=== PATIENT | female | born 1990 | race Caucasian/White ===

== ENCOUNTER 2018-08-14 10:36 | Inpatient (IN) ==
[2018-08-14 11:37] LABS: Basophils % 0.3 %; Eosinophils # 0.2 K/mcL (0.0-0.6); Eosinophils % 1.6 %; Hematocrit 36.4 % (35.3-44.9); Hemoglobin 12.6 g/dL (11.5-15.4); Immature Granulocytes % 0.7 % (0-4); Lymphocytes # 1.5 K/mcL (0.6-4.6); Lymphocytes % 14.4 %; Mean Corpuscular HGB Conc 34.6 g/dL (31.6-35.5); Mean Corpuscular Hemoglobin 31.9 pg (28.0-33.3); Mean Corpuscular Volume 92.2 fL (83.0-100.0); Mean Platelet Volume 10.1 fL (9.4-12.4); Monocytes # 0.8 K/mcL (0.0-1.3); Monocytes % 7.2 %; Neutrophils # 8.1 K/mcL (1.6-8.9); Platelet Count 209 K/mcL (140-400); Red Blood Count 3.95 M/mcL (3.82-4.97); Red Cell Distribution Width 13.7 % (11.5-14.5); Segmented Neutrophils % 75.8 %
[2018-08-14 11:39] LABS: Alanine Aminotransferase 14 Units/L (7-52); Amphetamine Screen,Urine Negative ng/mL (Cutoff=1000); Aspartate Amino Transferase 13 Units/L (13-39); BUN/Creatinine Ratio 10 (6-26); Barbiturate Screen,Urine Negative ng/mL (Cutoff=200); Benzodiazepines Screen,Urine Negative ng/mL (Cutoff=200); Blood Urea Nitrogen 5 mg/dL (6-20); Cannabinoid Screen,Urine Negative ng/mL (Cutoff = 50); Cocaine Screen,Urine Negative ng/mL (Cutoff= 300); Lactate Dehydrogenase 143 Units/L (140-271); Opiate Screen,Urine Negative ng/mL (Cutoff=300); Phencyclidine Screen,Urine Negative ng/mL (Cutoff=25); Protein/Creatinine Ratio,Urine 0.94 mg/mg (0.00-0.20); eGFR For Non-African Americans > 60 (> 60)
[2018-08-14 11:40] LABS: Bilirubin,Urine Negative (Negative); Blood,Urine Negative (Negative); Clarity,Urine Clear (Clear); Color,Urine Yellow (Yellow); Glucose,Urine (UA) Normal (Normal); Ketones,Urine Negative (Negative); Leukocyte Esterase,Urine Small (Negative); Nitrite,Urine Negative (Negative); PH,Urine 7.5 pH Units (5.0-8.0); Protein,Urine 30 mg/dL (Neg-Trace); Specific Gravity,Urine 1.007 (1.010-1.025); Urobilinogen,Urine Normal (Normal)
[2018-08-14 11:45] LABS: Bacteria,Urine None Seen per hpf (None-Few); Hyaline Casts,Urine None Seen per lpf (None-Few); RBC,Urine 0-3 per hpf (0-3); Squamous Epithelial Cell,Urine Many per lpf (None-Few); WBC,Urine 0-3 per hpf (0-3)
[2018-08-14] MEDS ORDERED: *HR* Nalbuphine 10 MG/ML AMPUL IVP PRN (13:17)
[2018-08-14] MEDS ORDERED: Ondansetron 4 MG/2 ML VIAL IVP PRN (13:17)
[2018-08-14] MEDS ORDERED: Naloxone 0.4 MG/ML INJ IVP PRN (13:17)
[2018-08-14] MEDS ORDERED: Famotidine 20 MG/2 ML VIAL IVP PRN (13:17)
[2018-08-14] MEDS ORDERED: Metoclopramide 10 MG/2 ML VIAL IVP PRN (13:17)
[2018-08-14] MEDS ORDERED: miSOPROStol 25 MCG TABLET PO PRN (13:19)
[2018-08-14] MEDS ORDERED: Ringers Solution, Lactated 1,000 ML IVC SCH (13:30)
[2018-08-14] MEDS ORDERED: *HR* Labetalol 20 MG/4 ML SYRINGE IVP ONE ×2 (14:28→14:29)
--- NOTE | 2018-08-14 14:44 | OB/GYN History & Physical ---
Date of Encounter: 08/14/18 Time of Encounter: 14:35 Assessment and Plan (1) 37 weeks gestation of Current visit: Yes Status: Acute (2) Pre-eclampsia, severe, third trimester Current visit: Yes Status: Acute PNC ratio 0.94, no blood found on UA. Multiple severe range pressures noted in labor and delivery. Admit to labor and delivery Nubain and epidural as desired Transfer of care to DrMikhail and only due to preeclampsia with severe features 20 mg labetalol IV Start magnesium 4 g bolus then 2 g an hour Anticipate (3) Elevated blood pressure affecting in third trimester, antepartum Current visit: No Status: Acute History of Present Illness Chief complaint: PIH HPI: Ms. Abebe is a 27 year old female 37+3 weeks gestation presents to labor and delivery for evaluation of preeclampsia. He should not with elevated protein on 24-hour urine. Denies headaches, visual changes. History of chronic hypertension. 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 care with Dr. Lucas. Labs: A+, rubella and varicella immune, GBS negative, all other serologies negative Past Med Surg Social Fam HX - Past Medical History Source: patient Medical history: other (ITP as child ) Psychiatric history: no psych history - Past Surgical History Surgical History: non-contributory Additional surgical history: tonsils and adenoids; eustachian tubes; cyst removal on foot - Social History Smoking Status: Current every day smoker Packs per day: half to 1 pack Smokeless Tobacco Status: No Alcohol use: none Drug use: none - Family History Mother Name: Florinda Merchant Age: 46 Family Member Ethnicity: Non- Living Status: Still Living Hx Family Cardiac Disorders: Yes (hyperlipidemia) Hx Family Respiratory Disorders: Yes (asthma COPD) Hx Family Cancer: No Hx Family GI Disorders: Yes (IBS) Hx Family Genitourinary Disorders: No Hx Family Endocrine Disorder: No Hx Family Musculoskeletal Disorders: No Hx Family Neuromuscular Disorders: No Hx Family Neurologic Disorders: No Hx Family HEENT Disorders: No Hx Family Autoimmune Disorders: No Hx Family Reproductive Disorders: No Hx Family Psychosocial Disorders: No Hx Family Medical Disorders: No Obstetrical History - Pregnancies : 1 Para: 0 Term: 0 : 0 Ab's: 0 Livin Medications and Allergies Pnv with Ca,No.72/Iron,Carb/FA [ Plus Iron Tablet] 1 each PO DAILY 02/09/18 [History] Allergy/AdvReac Type Severity Reaction Status Date / Time Amoxicillin Allergy Mild Rash Verified 08/10/18 06:58 Exam - Constitutional Constitutional: well developed, well nourished, no acute distress - Neck Neck exam: full ROM - Lungs Respiratory exam: CTAB - Cardiovascular Cardiovascular exam: RRR - Abdomen Abdomen: Present: gravid, non tender - Extremities Extremities exam: normal capillary refill, normal inspection Deep Tendon Reflex Grade: 2+ Normal - Cervix Dilation: 3 (per RN) Results Result Diagrams: 08/14/18 11:05 08/14/18 11:05 Abnormal lab results BUN 5 mg/dL (6-20) L 08/14/18 11:05 Creatinine 0.50 mg/dL (0.60-1.20) L 08/14/18 11:05 Ur Specific [place] 1.007 (1.010-1.025) L 08/14/18 11:20 Urine Protein 30 mg/dL (Neg-Trace) H 08/14/18 11:20 Ur Leukocyte Esterase Small (Negative) H 08/14/18 11:20 Ur Squamous Epith Cells Many per lpf (None-Few) H 08/14/18 11:20 Ur Culture Indicated? NO. (NO) A 08/14/18 11:20 Protein/Creatinin Ratio 0.94 mg/mg (0.00-0.20) H 08/14/18 11:05 Urine Total Protein 43 mg/dL (1-14) H 08/14/18 11:05 All other labs normal. - VTE Reasons for not Prescribing Prophylaxis: Treatment not Indicated - Low risk for VTE
[2018-08-14] MEDS ORDERED: Calcium Gluconate 1,000 MG/10 ML VIAL IVPB ONE (15:06)
[2018-08-14] MEDS: Magnesium Sulfate 20 gm/500mL 20 GM/500 ML IV.SOLN IVC SCH (15:07)
[2018-08-14] MEDS ORDERED: Oxytocin 20 units/ LR 1000 mL 20 UNIT/1,000 ML BAG IVC SCH (17:00)
--- NOTE | 2018-08-14 17:09 | OB Labor Progress Note ---
Date of Encounter: 08/14/18 Time of Encounter: 17:06 Labor Progress Note - Subjective Subjective: she's doing well s/p AROM, no reported signs or symptoms of toxemia(BOYLE, RUQ pain, epigastric pain, blurry vision, nausea or vomiting etc) - Vital Signs Vital Signs: 130's-170's/60-90's - Cervix Cervix: 5/90/-1 - Heart Tones Heart Tones: 135/mod eliseo/+accels no decels - [place]: irreg - Interventions Interventions: ok to start pitocin, ok for epidural if she desires, anticipate , currently on Mg for seizure ppx
[2018-08-14] MEDS ORDERED: Oxytocin 20 units/ LR 1000 mL 20 UNIT/1,000 ML BAG IVC ONE (17:19)
--- NOTE | 2018-08-14 19:35 | Anesthesia Evaluation PreOp ---
Date of Encounter: 08/14/18 Time of Encounter: 19:33 - Past History Planned Operation: gaudencio Cardiac History: HTN (gestational) Pulmonary History: Smoker (1 ppd), Pack/yr (8) [employer] History: Denies Any Significant HX Other Medical History: GERD, Other ([place] BMI 44) Anesthesia History: No Prior Anesthetic Complications, Past Anesthesia (tonsil BMT, foot) : Yes Test: Positive Alcohol Use: none Drug use: none Medications and Allergies Pnv with Ca,No.72/Iron,Carb/FA [ Plus Iron Tablet] 1 each PO DAILY 02/09/18 [History] Allergy/AdvReac Type Severity Reaction Status Date / Time Amoxicillin Allergy Mild Rash Verified 08/10/18 06:58 - Meds/Allergy Pre-op Review Medications Reviewed: Yes Allergies Reviewed: Yes Beta Blockers on Current Med List: No Anesthesia Results - Labs 08/14/18 11:05 08/14/18 11:05 Anesthesia Exam Vital Signs/O2 Sat, Most Current Pulse Resp BP 82 16 142/68 08/14/18 18:10 08/14/18 18:10 08/14/18 18:10 Height: 5'4" Weight: 118kg NPO (# of Hours): 2 Pain Scale: 4 Pain Scale Used: Numeric (1 - 10) - HEENT Pupil (Motor): Pupils equal Mallampati: III Teeth: Normal Oral Opening: Greater than 3 - [employer] LOC: Oriented [employer] Motor: Normal RUE, Normal LUE, Normal RLE, Normal LLE, Normal Face [employer] Sensory: Normal: RUE, LUE, RLE, LLE, Face - Cardiac Rhythm: Regular Murmur: None - Pulmonary Breath Sounds: bilateral Clear Respiratory Effort: Symmetrical Anesthesia Assess/Plan ASA Score: 3 (htn, [place],) Level of consciousness: Cooperative Anesthetic Plan: MAC, Epidural (risks discussed, questions answered, consented) Autologous Blood: No Monitoring Plan: Standard Monitors Recovery Plan: Other
[2018-08-14] MEDS ORDERED: *HR* Ropivacaine/PF 0.2% 20 ML VIAL EP ONE (19:36)
[2018-08-14] MEDS ORDERED: *HR* FentaNYL (PF) 100 MCG/2 ML VIAL EP ONE (19:36)
[2018-08-14] MEDS ORDERED: Epidural Premix (fent/bupiv) 110 ML EP SCH (19:45)
[2018-08-14] MEDS ORDERED: *HR* FentaNYL (PF) 100 MCG/2 ML VIAL ONE (21:52)
[2018-08-14] MEDS ORDERED: Lidocaine -MPF 2% 5 ML VIAL ONE (21:53)
[2018-08-14] MEDS ORDERED: *HR* Ropivacaine/PF 0.2% 20 ML VIAL ONE (21:53)
--- NOTE | 2018-08-14 22:00 | OB Labor Progress Note ---
Date of Encounter: 08/15/18 Time of Encounter: 22:00 Labor Progress Note - Subjective Subjective: patient is doing well, no signs and symptoms of toxemia - Vital Signs Vital Signs: 130-140's/50-60's - Cervix Cervix: 5cm/90%/-2 - Heart Tones Heart Tones: 130/mod eliseo/+accels, non rec eliseo decels - [place]: Q1-2 - Interventions Interventions: cont Mg for seizure ppx, good urine output, cont pitocin, now @ 10, anticipate
[2018-08-14] MEDS ORDERED: EPHEDrine 50 MG/ML VIAL ONE (22:27)
--- NOTE | 2018-08-14 22:27 | Anesthesia Procedures ---
Addendum entered and electronically signed by Sivan Chauhan CRNA 08/15/18 08:53: - Delivery Date: 08/15/18 @0705 Original Note: Date of Encounter: 08/14/18 Time of Encounter: 22:25 Procedures: Anesthesia - Epidural/Spinal Patient ID/Chart reviewed: Yes Patient examined: Yes OB Eval: Gestational age: 38 OB Eval: : 1 OB Eval: Hx Para: 0 OB Eval: Dilated at (cm): 5 OB Eval: Contractions: Non-stressed pattern Consent Obtained: Yes Supplemental Oxygen: None/Room Air Site Prep: Aseptic Technique, Sterile prep and drape, 0.5% Chlorhexidine/Alcohol Patient position: upright Local Anesthetic: Lidocaine 1% Amount of Local Anesthetic used: 3 Touhy Needle Gauge: 18 Touhy Needle Depth (cm): 8 Catheter Depth at Skin (cm): 18 Test Dose (1.5% Lido + Epi): Volume given (mls): 3 Test Dose Result: Negative Loading Dose: Fentanyl (mcg): 100 Loading Dose: Other: rop 0.2% 10cc Loading Dose Administered: Thru Touhy Needle Infusion Med: 0.125% Bupivacaine w/ 2 mcg/ml Fentanyl Infusion Rate (mls/hr): 15 (pcea) Catheter Secured in Place: Tegaderm Interspace Used: L2-L3 Loss of Resistance (YANY): Yes Blood: No CSF: No Paresthesia: No Procedure: aseptic, jesus well, VSS Vitals + FHT's: 110/78 88 fht 132
--- NOTE | 2018-08-14 23:49 | OB Labor Progress Note ---
Date of Encounter: 08/15/18 Time of Encounter: 23:36 Labor Progress Note - Subjective Subjective: patient with epidural hypotension resulting in late decels - Vital Signs Vital Signs: 90-160's/50-70's - Cervix Cervix: 5/90%/-2 - Heart Tones Heart Tones: 135/mod eliseo/no accels, +late decels - [place]: Q1-2 - Interventions Interventions: Ephedrine x 2 doses given with resolution of the hypotension, cont monitoring strip, anticipate
[2018-08-15] MEDS: Magnesium Sulfate 20 gm/500mL 20 GM/500 ML IV.SOLN IVC SCH ×3 (00:14→23:16)
--- NOTE | 2018-08-15 01:02 | OB Labor Progress Note ---
Date of Encounter: 08/15/18 Time of Encounter: 01:02 Labor Progress Note - Subjective Subjective: patient is doing well, no signs or symptoms of toxemia - Vital Signs Vital Signs: 130-180's/60-100's - Cervix Cervix: 6-7cm/90%/-2 - Heart Tones Heart Tones: 120/mod eilseo/+accels, non rec eliseo decels - [place]: Q3-4 - Interventions Interventions: allow labor to progress, continue Mg for seizure ppx, urine output adequate
[2018-08-15] MEDS ORDERED: *HR* FentaNYL (PF) 100 MCG/2 ML VIAL ONE (02:34)
--- NOTE | 2018-08-15 02:42 | Anesthesia Progress Note ---
Date of Encounter: 08/15/18 Time of Encounter: 02:40 Anesthesia Note - Note Note: 08/15/18 02:40 re dosed epidural for breakthrough pain, Ropivicaine 0.2% 5 ml fentanyl 100 mcg
--- NOTE | 2018-08-15 06:24 | OB Labor Progress Note ---
Date of Encounter: 08/15/18 Time of Encounter: 06:24 Labor Progress Note - Subjective Subjective: patient is feeling more of her ctxs, - Vital Signs Vital Signs: 140-180's/70-80's - Cervix Cervix: 9cm - Heart Tones Heart Tones: 115/mod eilseo/+accels, no decels - [place]: Q1-3 - Interventions Interventions: allow labor to progress, anticipate - Plan Physician notified: No Plan: Physician not notified of severe range pressures @ 5:27
--- NOTE | 2018-08-15 08:33 | OB/GYN Procedure Note ---
Delivery - Delivery Date: 08/15/18 Provider: Nilda Fried Intrapartum events: none Delivery induction: AROM Delivery augmentation: pitocin Delivery monitor: external FHT, external uterine Anesthesia: epidural Quantitated Blood Loss: 200 - Repair Episiotomy: none Laceration Description: Perineal - 1st Degree - Complications Delivery complications: none - Disposition Mom disposition: stable in LDR [place] disposition: stable in LDR - Comments Comments: Alena is a 27 y/o now who delivered a viable male @ 0705hrs. Infant delivered CHRISTA, no nuchal cord, APGARs 8/8, weight 2770g. Cord clamped and cut with hand over to Mom. Placenta delivered @ 0715hrs. EBL 200ml. 1st degree laceration repaired with 3-0 vicryl. Mother and infant stable.
[2018-08-15] MEDS ORDERED: Ibuprofen 600 MG TABLET PO PRN (09:54)
[2018-08-15] MEDS ORDERED: Measles/Mumps/Rubella Vacc 0.5 ML VIAL SQ PRN (09:54)
[2018-08-15] MEDS ORDERED: [UNRECOGNIZED DRUG - REMARK] PO SCH (09:54)
[2018-08-15] MEDS ORDERED: Oxytocin 20 units/ LR 1000 mL 20 UNIT/1,000 ML BAG IVC SCH (09:54)
[2018-08-15] MEDS ORDERED: Calcium Gluconate 1,000 MG/10 ML VIAL IVPB ONE (11:11)
[2018-08-16 04:33] LABS: Basophils % 0.2 %; Eosinophils # 0.1 K/mcL (0.0-0.6); Eosinophils % 0.8 %; Hematocrit 27.2 % (35.3-44.9); Immature Granulocytes % 0.4 % (0-4); Lymphocytes # 2.1 K/mcL (0.6-4.6); Lymphocytes % 16.9 %; Mean Corpuscular HGB Conc 33.5 g/dL (31.6-35.5); Mean Corpuscular Hemoglobin 31.3 pg (28.0-33.3); Mean Corpuscular Volume 93.5 fL (83.0-100.0); Mean Platelet Volume 10.1 fL (9.4-12.4); Monocytes # 0.8 K/mcL (0.0-1.3); Monocytes % 6.2 %; Neutrophils # 9.3 K/mcL (1.6-8.9); Platelet Count 182 K/mcL (140-400); Red Blood Count 2.91 M/mcL (3.82-4.97); Red Cell Distribution Width 14.3 % (11.5-14.5); Segmented Neutrophils % 75.5 %
[2018-08-16 04:35] LABS: Hemoglobin 9.1 g/dL (11.5-15.4)
[2018-08-16] MEDS: Prenatal Vit/FA 1 EACH TABLET PO SCH (08:01)
--- NOTE | 2018-08-16 13:48 | OB/GYN Progress Note ---
Date of Encounter: 08/16/18 Time of Encounter: 13:46 - Assessment and Plan (1) Vaginal delivery Current Visit: Yes Status: Acute Pt meeting milestones. Continue to monitor BP's today. Anticipate discharge home in am if BP's well controlled. (2) Pre-eclampsia, severe, third trimester Current Visit: Yes Status: Acute Subjective - Subjective Interval history: Pt denies s/sx preeclampsia Patient reports: appetite normal, voiding normally, pain well controlled, ambulating normally : doing well Objective - Latest Vital Signs Latest vital signs: Vital Signs Temp Pulse Resp BP Pulse Ox 08/16/18 12:20 97.7 F 88 16 117/54 98 08/16/18 07:20 98.2 F 81 14 123/69 97 08/16/18 06:10 84 14 124/64 08/16/18 05:05 97 14 108/62 08/16/18 04:10 84 16 136/70 08/16/18 03:00 80 14 120/65 08/16/18 02:00 77 14 114/63 08/16/18 01:00 74 14 111/62 08/16/18 00:20 85 16 120/56 08/15/18 23:00 84 14 120/69 08/15/18 22:00 84 14 105/63 08/15/18 21:00 83 14 93/54 08/15/18 20:10 98.8 F 89 14 112/76 97 08/15/18 20:00 89 14 112/76 08/15/18 19:00 89 16 126/73 08/15/18 17:53 90 16 124/74 08/15/18 16:53 88 16 122/75 08/15/18 15:55 87 16 123/74 08/15/18 14:45 94 16 117/65 Intake and Output 08/15/18 08/16/18 08/16/18 23:59 07:59 15:59 Intake Total 500 / 500 414.8 / 414.8 Output Total 1750 / 1750 1450 / 1450 1200 / 1200 Balance -1250 / -1250 -1035.2 / -1035.2 -1200 / -1200 Intake: IV Fluids 500 / 500 414.8 / 414.8 Magnesium Sulfate Premix 20 gm/ 500 / 500 414.8 / 414.8 500mL 20 gm In 500 ml @ 2 GM/HR 50 mls/hr IVC .Q10H OFE Rx#: [id number] Output: Urine 1750 / 1750 1450 / 1450 1200 / 1200 Other: Stool Size Moderate Small Stool Consistency formed loose Stool Characteristics Normal for Patient Normal for Patient # Voids 1 # Bowel Movements 1 - Exam Lungs: bilateral: normal Chest: Normal S1, Normal S2 Extremities: Present: normal Abdomen: Present: soft Uterus: Present: firm Uterus Position: At Umbilicus - Labs Labs: Laboratory Results - last 24 hr 08/16/18 03:59 WBC 12.3 H RBC 2.91 L Hgb 9.1 L D Hct 27.2 L MCV 93.5 MCH 31.3 MCHC 33.5 RDW 14.3 Plt Count 182 MPV 10.1 Immature Gran % 0.4 Seg Neutrophils % 75.5 Lymphocytes % 16.9 Monocytes % 6.2 Eosinophils % 0.8 Basophils % 0.2 Neutrophils # 9.3 H Lymphocytes # 2.1 Monocytes # 0.8 Eosinophils # 0.1 Basophils # 0.0
[2018-08-17 08:46] VITALS: BP 133/74
[2018-08-17] MEDS: Prenatal Vit/FA 1 EACH TABLET PO SCH (08:54)
--- NOTE | 2018-08-17 09:36 | Discharge Summary ---
Date of Encounter: 08/17/18 Time of Encounter: 09:34 - Discharge Diagnosis (1) Pre-eclampsia, severe, third trimester Priority: Primary Status: Acute Comments: Stable, will discharge on labetalol BP check in one week (2) anemia Priority: Primary Status: Acute Comments: will discharge home on iron (3) Vaginal delivery Priority: Primary Status: Acute Comments: Stable, meeting all PP milestones, pain well managed on po pain medications, tolerates diet, bottle feeding, desires discharge. - Discharge Medications Prescriptions: New Ferrous Sulfate 325 mg PO DAILY #60 tablet Labetalol [Trandate] 200 mg PO BID #60 tablet Ibuprofen [Motrin] 600 mg PO Q6HR PRN #60 tablet PRN Reason: Cramping Docusate [Colace] 100 mg PO BID #30 capsule Continue Pnv with Ca,No.72/Iron,Carb/FA [ Plus Iron Tablet] 1 each PO DAILY Home Medications: Pnv with Ca,No.72/Iron,Carb/FA [ Plus Iron Tablet] 1 each PO DAILY 02/09/18 [History] Docusate [Colace] 100 mg PO BID #30 capsule 08/17/18 [Rx] Ferrous Sulfate 325 mg PO DAILY #60 tablet 08/17/18 [Rx] Ibuprofen [Motrin] 600 mg PO Q6HR PRN #60 tablet 08/17/18 [Rx] Labetalol [Trandate] 200 mg PO BID #60 tablet 08/17/18 [Rx] Allergies/Adverse Reactions: Allergy/AdvReac Type Severity Reaction Status Date / Time Amoxicillin Allergy Mild Rash Verified 08/10/18 06:58 Data Procedures and tests throughout hospitalization: Laboratory Tests 08/14/18 08/14/18 08/14/18 11:05 11:05 11:05 WBC 10.7 RBC 3.95 Hgb 12.6 Hct 36.4 MCV 92.2 MCH 31.9 MCHC 34.6 RDW 13.7 Plt Count 209 MPV 10.1 Immature Gran % 0.7 Seg Neutrophils % 75.8 Lymphocytes % 14.4 Monocytes % 7.2 Eosinophils % 1.6 Basophils % 0.3 Neutrophils # 8.1 Lymphocytes # 1.5 Monocytes # 0.8 Eosinophils # 0.2 Basophils # 0.0 BUN Creatinine Est GFR ( Amer) Est GFR (Non-Af Amer) BUN/Creatinine Ratio Uric Acid AST ALT Lactate Dehydrogenase Urine Color Urine Clarity Urine pH Ur Specific [place] Urine Protein Urine Glucose (UA) Urine Ketones Urine Blood Urine Nitrite Urine Bilirubin Urine Urobilinogen Ur Leukocyte Esterase Urine Microscopic RBC Urine Microscopic WBC Ur Squamous Epith Cells Urine Bacteria Hyaline Casts Ur Culture Indicated? Urine Creatinine 46 Protein/Creatinin Ratio 0.94 H Urine Total Protein 43 H Urine Opiates Screen Negative Ur Barbiturates Screen Negative Ur Phencyclidine Scrn Negative Ur Amphetamines Screen Negative U Benzodiazepines Scrn Negative Urine Cocaine Screen Negative U Marijuana (THC) Screen Negative Ur Drug Screen Interp See Below 08/14/18 08/14/18 08/16/18 11:05 11:20 03:59 WBC 12.3 H RBC 2.91 L Hgb 9.1 L D Hct 27.2 L MCV 93.5 MCH 31.3 MCHC 33.5 RDW 14.3 Plt Count 182 MPV 10.1 Immature Gran % 0.4 Seg Neutrophils % 75.5 Lymphocytes % 16.9 Monocytes % 6.2 Eosinophils % 0.8 Basophils % 0.2 Neutrophils # 9.3 H Lymphocytes # 2.1 Monocytes # 0.8 Eosinophils # 0.1 Basophils # 0.0 BUN 5 L Creatinine 0.50 L Est GFR ( Amer) > 60 Est GFR (Non-Af Amer) > 60 BUN/Creatinine Ratio 10 Uric Acid 4.0 AST 13 ALT 14 Lactate Dehydrogenase 143 Urine Color Yellow Urine Clarity Clear Urine pH 7.5 Ur Specific [place] 1.007 L Urine Protein 30 H Urine Glucose (UA) Normal Urine Ketones Negative Urine Blood Negative Urine Nitrite Negative Urine Bilirubin Negative Urine Urobilinogen Normal Ur Leukocyte Esterase Small H Urine Microscopic RBC 0-3 Urine Microscopic WBC 0-3 Ur Squamous Epith Cells Many H Urine Bacteria None Seen Hyaline Casts None Seen Ur Culture Indicated? NO. A Urine Creatinine Protein/Creatinin Ratio Urine Total Protein Urine Opiates Screen Ur Barbiturates Screen Ur Phencyclidine Scrn Ur Amphetamines Screen U Benzodiazepines Scrn Urine Cocaine Screen U Marijuana (THC) Screen Ur Drug Screen Interp Date of admission: 08/14/18 10:36 Primary care physician: Zeinab Gordillo Consults: 08/15/18 09:54 Consult to Manager Aviation [CONS] Routine Comment: Vaginal delivery, consult needed Discharging clinician: Jamilah Smith Anticipated date of discharge: 08/17/18 - Patient Status Disposition: Home, Self-Care Condition: Good Functional capacity at discharge: independent ambulation Overall status at discharge: patient is progressing back to baseline - Discharge Instructions Follow Up With: Zeinab Gordillo MD [Primary Care Provider] - Perfecto Lucas MD [Partnered Physician] - - Diet and Activity Activity: resume usual activities as tolerated Diet: regular diet Hospital Course Reason for admission: induction of labor Delivery: Episiotomy: none Laceration: 1st degree Other procedures: none complications: none Discharge diagnosis: IUP at term delivered [place] baby: male Hospital course: Delivery - Delivery Date: 08/15/18 Provider: Nilda Fried Intrapartum events: none Delivery induction: AROM Delivery augmentation: pitocin Delivery monitor: external FHT, external uterine Anesthesia: epidural Quantitated Blood Loss: 200 - Repair Episiotomy: none Laceration Description: Perineal - 1st Degree - Complications Delivery complications: none - Disposition Mom disposition: stable in PP and appropriate for discharge Time spent discussing smoking cessation with patient: 3 to 10 minutes Time Attestation: Total time spent providing and/or coordinating discharge services: Time Spent: Less than 30 minutes Exam - Constitutional Vitals: Temp Pulse Resp BP Pulse Ox 98.7 F 82 16 133/74 98 08/17/18 08:00 08/17/18 08:00 08/17/18 08:00 08/17/18 08:00 08/17/18 08:00 General appearance IM: A&O X 3 - Respiratory Respiratory exam: Present: CTAB - Cardiovascular Cardiovascular exam IM: Present: RRR - GI/Abdominal GI/Abdominal exam IM: soft - Uterine Tone: Firm Uterus Position: At Umbilicus - Extremities Exam Extremities exam IM: Present: normal capillary refill, normal inspection - Neurological Exam Neurological exam: normal gait, oriented X3 - Psychiatric Additional comments: Tearful at times but appropriate states mood stable
== END 2018-08-17 11:36 | disposition home or self-care (01) | DRG 560 ==
LOC: 1NENULAB → OBSVTOIN 10:36 → 1NENUOBS 08-15 10:00
PROVIDERS: ADMIT Advanced Practice Midwife; ATTEND Advanced Practice Midwife